=== PATIENT | male | born 1960 | race Caucasian/White ===

== ENCOUNTER 2019-07-02 15:27 | Inpatient (IN) | payer OTHER, SELFPAY ==
[~2019-07-02 15:27] MED LIST: Iopamidol 370 76% 100 ML VIAL ONE
[2019-07-02 16:17] LABS: #Basophils 0.1 thou/uL (0.0-0.2); #Eosinphils 0.4 thou/uL (0.0-0.7); #Lymphocytes 2.2 thou/uL (1.20-3.40); #Monocytes 0.9 thou/uL (0.11-0.59); #Neutrophils 6.1 thou/uL (1.40-6.50); %Basophils 0.6 % (0.0-1.0); %Lymphocytes 22.4 % (21.0-51.0); %Monocytes 9.1 % (0.0-10.0); %Neutrophils 63.8 % (42.0-75.0); Hemoglobin 13.4 g/dL (14.0-18.0); Mean Corpuscular HGB CONC 34.8 g/dL (32.0-36.0); Mean Corpuscular Hemoglobin 32.8 pg (27.0-31.0); Mean Corpuscular Volume 94.1 fL (78.0-98.0); Mean Platelet Volume 8.6 fL (7.4-10.4); Platelet Count 184 thou/uL (130-400); RBC Distribution Width 11.7 % (11.5-14.5); Red Blood Cell (RBC) Count 4.09 mill/uL (4.70-6.10); White Blood Cell (WBC) Count 9.6 thou/uL (4.8-10.8)
--- NOTE | 2019-07-02 16:20 | CT ---
CT BRAIN NONCONTRAST: DATE: 07/02/2019 HISTORY: 59-year-old male with bilateral upper extremity weakness. "Altered mental status" Brief episode of dysarthria. Dr. Mooney verbally gave this stroke alert protocol report by telephone to Dr. Mares of the emergency de partment at 4:17 PM 07/02/2019 FINDINGS: There is no evidence of acute intra-axial or extra-axial hemorrhage. There is no midline shift or any other mass effect. There is no extra-axial fluid collection. There is no evidence of obstructive hydrocephalus. Calvarium is intact. IMPRESSION: No acute intracranial findings.
[2019-07-02 16:24] LABS: Prothrombin Time 13.2 SEC (12.0-14.7)
[2019-07-02 16:26] LABS: D-Dimer Test 0.57 *mcg/mL (0.27-0.43)
[2019-07-02 16:32] LABS: Acetaminophen Less than 6.0 mcg/mL (10.0-30.0); Alcohol Less than 10 mg/dL (Less than 10); Salicylate Less than 8.0 mg/dL (15.0-30.0)
[2019-07-02 16:33] LABS: ALT (SGPT) 16 U/L (8-55); AST (SGOT) 14 U/L (5-34); Albumin 4.3 g/dL (3.5-5.0); Alkaline Phosphatase 71 U/L (40-110); Anion Gap 14 mmol/L (10-20); BUN (Urea Nitrogen) 18 mg/dL (8.4-25.7); Bilirubin, Total 0.9 mg/dL (0.2-1.2); CK (CPK) 115 U/L (30-200); Calc. Creatinine Clearance 0 mL/min (70-130); Calcium 9.5 mg/dL (7.8-10.44); Carbon Dioxide 27 mmol/L (22-29); Chloride 102 mmol/L (98-107); Estimated GFR-MDRD 75; Globulin 2.9 g/dL (2.4-3.5); Glucose 158 mg/dL (70-105); Lipase 104 U/L (8-78); Protein, Total 7.2 g/dL (6.0-8.3); Sodium 139 mmol/L (136-145)
--- NOTE | 2019-07-02 16:34 | RAD ---
Chest one view HISTORY: Chest pain. FINDINGS: Cardiac silhouette is magnified by projection. Pulmonary vasculature is unremarkable. Media stinum is midline. No lobar consolidation or evidence of pneumothorax. quality assurance monitor chassis leads overlie the chest. IMPRESSION: Normal exam.
--- NOTE | 2019-07-02 17:37 | CT ---
EXAM: CT angiogram thorax and abdomen with IV contrast and 3-D reconstructions PROVIDED CLINICAL HISTORY: Bilateral hand and arm weakness. Slurred speech and neck pain history of high blood pressure COMPARISON: None FINDINGS: Axial CT images are obtained from the level of the thyroid gland to the distal intra-abdominal aorta. Iliac arteries were not imaged on this exam. Scattered vascular calcifications are seen in the thoracic and abdominal aorta. No aneurysm or aortic dissection is seen involving the thoracic or abdominal aorta. A normal arrangement of the great vessels at the aortic arch are noted which are patent. Atherosclerotic plaque is seen within the prox imal left common carotid artery, but there is motion in this region which does limit adequate evaluation. There is evidence of an arcuate ligament with ectasia of the celiac artery axis distal to the level o f the arcuate ligament. The superior mesenteric and inferior mesenteric arteries are patent with questionable trace amount of eccentric atherosclerotic plaque in the proximal JEREMY, but there is motio n this region which may account for this finding. Single patent bilateral renal arteries are visualized. A 6 mm noncalcified pulmonary nodule is seen in the right middle lobe. No additional pulmonary nodule , mass, or pleural effusion is seen. This exam is obtained in expiratory phase imaging which does result in ground glass densities likely attributable to volume loss. The heart is mildly enlarged. Vascular calcifications are seen in the coronary arteries. Mediastinal structures otherwise have a normal CT appearance. The liver, spleen, pancreas, bilateral adrenal glands, and kidneys demonstrate a normal CT appearance for arterial phase of imaging. A retrocecal appendix is visualized and normal in caliber. A few scattered colonic diverticula are se en in the visualized colon. There is no lymphadenopathy or free fluid. Incomplete visualization of a ventral abdominal wall hernia is seen in the midline. Degenerative changes are seen in the spine with hemangioma in the T11 vertebral body. IMPRESSION: 1. Noncalcified pulmonary nodule right middle lobe measuring approximately 6 mm. Follow-up CT thorax in 6-12 months is recommended. 2. There is no evidence of an aortic dissection or aneurysm involving the thoracic or abdominal aorta . 3. Mild cardiomegaly. 4. No acute findings in the chest or visualized abdomen. The entire abdomen was not imaged on this ex am. Iliac arteries were not imaged.
[2019-07-02 17:48] LABS: Bilirubin Negative (Negative); Blood, Urine Negative (Negative); Clarity Clear (Clear); Glucose, Urine (Dipstick) 100 mg/dL (Negative); Leukocyte Negative Leu/uL (Negative); Nitrite Negative (Negative); Protein, Urine (Dipstick) Negative (Neg-Trace); Urobilinogen Normal mg/dL (Less than 2)
[2019-07-02 18:00] LABS: Amphetamine Not Detected (NotDetected); Barbiturates Screen Not Detected (NotDetected); Benzodiazepine Screen Not Detected (NotDetected); Cocaine Metabolite Screen Not Detected (NotDetected); Medtox Control Line Valid? VALID (VALID); Medtox Reader # READER 4; Methadone Not Detected (NotDetected); Methamphetamine Not Detected (NotDetected); Opiate Screen Not Detected (NotDetected); Oxycodone Screen Not Detected (NotDetected); Phencyclidine (PCP) Not Detected (NotDetected); THC/Cannabinoid Screen Not Detected (NotDetected); Tricyclic Screen Not Detected (NotDetected)
[2019-07-02] MEDS ORDERED: Ondansetron PF 4 MG/2 ML Vial IVP PRN (19:02)
[2019-07-02] MEDS ORDERED: Ondansetron ODT 4 MG TAB SL PRN (19:02)
[2019-07-02 20:05] VITALS: BMI 34.9
[2019-07-02] MEDS ORDERED: Senokot S 8.6-50 MG TAB PO PRN (21:14)
[2019-07-02] MEDS ORDERED: Acetaminophen 325 MG TAB PO PRN (21:14)
[2019-07-02] MEDS ORDERED: Dextrose 5% in Water 1,000 ML IV PRN (21:18)
[2019-07-02] MEDS ORDERED: Dextrose 50% Abboject 50 ML SYRINGE SLOW IVP PRN (21:18)
--- NOTE | 2019-07-02 21:44 | PDOC.HHP ---
Hospitalist HPI - History of Present Illness Weakness of both hands History of Present Illness: 59 yo male with DM-2, HTN, CVA history presented to ER due to sudden onset of weakness of both arms. He states that he was well when he woke up this morning. At 9 AM, he had sudden onset weakness of both hands where he was unable to make a fist or hold any objects. The weakness gradually got worse until 2 PM. So, he presented to the ER. He denies a headache, vision changes, N/V/C, abdominal pain , fever, chills. No speech changes, confusion, difficulty swallowing. No weakness in his legs. No neck pain, injury recently, falls. No pain in his arms. No incontinence of bowel or bladder. No CP,SOB, Cough, wheezing, burning or pain with urination. ED Course: In ER, CT head without any abnormalities. CTA chest without any dissection. Hospitalist ROS - Review of Systems All other systems reviewed; all pertinent +/- noted in HPI/Subj Hospitalist History - Past Medical History Source: patient, family Cardiac: reports: HTN, Hyperlipidemia BATTERY ASSEMBLER: reports: CVA, TIA Endocrine: reports: Diabetes - Past Surgical History Past Surgical History: reports: no pertinent history (Reviewed) - Family History Family History: reports: no pertinent history (Reviewed) - Social History Smoking Status: Current some day smoker Tobacco Type: snuff Alcohol: reports: None (History of heavy use in the past) Drugs: reports: none Living Situation: Alone Activity level: independent ambulation - Exam General Appearance: NAD, awake alert Eye: PERRL, anicteric sclera ENT: normocephalic atraumatic, no oropharyngeal lesions, moist mucosa Neck: supple, symmetric, no JVD, no thyromegaly, no lymphadenopathy Heart: RRR, no murmur, no gallops, no rubs, normal peripheral pulses Respiratory: CTAB, no wheezes, no rales, no ronchi, normal chest expansion, no tachypnea Gastrointestinal: soft, non-tender, normal bowel sounds, no palpable masses, no hepatomegaly, no splenomegaly Gastrointestinal - other findings: obese Extremities: no cyanosis, no clubbing, no edema Skin: normal turgor, no lesions Skin - other findings: warm and dry Neurological: cranial nerve grossly intact, normal sensation to touch Musculoskeletal: no muscle wasting Musculoskeletal - other findings: intact strength at shoulder and elbow flxn; weak extn elb & hands;can't fist Psychiatric: normal affect, normal behavior, A&O x 3 Hospitalist Results - Labs Result Diagrams: 07/02/19 16:05 07/02/19 16:05 Lab results: WBC 9.6 thou/uL (4.8-10.8) 07/02/19 16:05 Hgb 13.4 g/dL (14.0-18.0) L 07/02/19 16:05 Hct 38.5 % (42.0-52.0) L 07/02/19 16:05 MCV 94.1 fL (78.0-98.0) 07/02/19 16:05 Plt Count 184 thou/uL (130-400) 07/02/19 16:05 Neutrophils % 63.8 % (42.0-75.0) 07/02/19 16:05 ESR Westergren 8 mm/hr (Less than 20) 07/02/19 16:05 Sodium 139 mmol/L (136-145) 07/02/19 16:05 Potassium 4.0 mmol/L (3.5-5.1) 07/02/19 16:05 Chloride 102 mmol/L (98-107) 07/02/19 16:05 Carbon Dioxide 27 mmol/L (22-29) 07/02/19 16:05 BUN 18 mg/dL (8.4-25.7) 07/02/19 16:05 Creatinine 1.02 mg/dL (0.7-1.3) 07/02/19 16:05 Glucose 158 mg/dL (70-105) H 07/02/19 16:05 Calcium 9.5 mg/dL (7.8-10.44) 07/02/19 16:05 Total Bilirubin 0.9 mg/dL (0.2-1.2) 07/02/19 16:05 AST 14 U/L (5-34) 07/02/19 16:05 ALT 16 U/L (8-55) 07/02/19 16:05 Alkaline Phosphatase 71 U/L (40-110) 07/02/19 16:05 Ammonia 17 umol/L (18-72) L 07/02/19 16:35 Creatine Kinase 115 U/L (30-200) 07/02/19 16:05 Troponin I 0.013 ng/mL (< 0.028) 07/02/19 16:05 C-Reactive Protein Less than 0.50 mg/dL (= or < 0.5) 07/02/19 16:05 B-Natriuretic Peptide 49.2 pg/mL (0-100) 07/02/19 16:05 Serum Total Protein 7.2 g/dL (6.0-8.3) 07/02/19 16:05 Albumin 4.3 g/dL (3.5-5.0) 07/02/19 16:05 Lipase 104 U/L (8-78) H 07/02/19 16:05 Urine Ketones 10 mg/dL (Negative) A 07/02/19 17:27 Urine Blood Negative (Negative) 07/02/19 17:27 Urine Nitrite Negative (Negative) 07/02/19 17:27 Ur Leukocyte Esterase Negative Theo/uL (Negative) 07/02/19 17:27 - EKG Interpretation EKG: Sinus rhythm; No ST-T changes concerning for ischemia - Radiology Interpretation CT scan - head Status: image reviewed by me (No acute hemorrhage) Hospitalist H&P A/P - Problem (1) Weakness of both upper extremities Code(s): R29.898 - OTH SYMPTOMS AND SIGNS INVOLVING THE MUSCULOSKELETAL SYSTEM Status: Acute Assessment and Plan: Place under observation to Stroke unit CT head without any abnormalities Will obtain MRI brain and MRI C-spine Neuro consult CTA head & neck; ECHO ASA & statin therapy PT/OT eval (2) Diabetes mellitus type 2 in obese Code(s): E11.9 - TYPE 2 DIABETES MELLITUS WITHOUT COMPLICATIONS; E66.9 - OBESITY , UNSPECIFIED Status: Chronic Assessment and Plan: Not on home insulin therapy Hold metformin as patient received IV dye Diabetic diet and SSI Monitor sugars and adjust regimen accordingly (3) Dyslipidemia Code(s): E78.5 - HYPERLIPIDEMIA, UNSPECIFIED Status: Chronic Assessment and Plan: Statin therapy (4) HTN (hypertension) Code(s): I10 - ESSENTIAL (PRIMARY) HYPERTENSION Status: Chronic Qualifiers: Hypertension type: essential hypertension Qualified Code(s): I10 - Essential (primary) hypertension Assessment and Plan: Blood pressure with SBP in the 140s Allow permissive HTN in case patient has acute CVA until MRI performed (5) Obesity (BMI 30-39.9) Code(s): E66.9 - OBESITY, UNSPECIFIED Status: Chronic - Plan Plan: CODE STATUS - DNR; May Intubate Daughter is Medical POA
[2019-07-02] MEDS ORDERED: Atorvastatin Calcium 40 MG TAB PO SCH (21:45)
[2019-07-03] MEDS: Sodium Chloride 0.9% 1,000 ML IV SCH ×2 (00:50→14:07)
[2019-07-03 05:01] LABS: #Eosinphils 0.4 thou/uL (0.0-0.7); #Lymphocytes 2.5 thou/uL (1.20-3.40); #Monocytes 0.8 thou/uL (0.11-0.59); #Neutrophils 4.1 thou/uL (1.40-6.50); %Basophils 0.5 % (0.0-1.0); %Eosinophils 4.5 % (0.0-10.0); %Lymphocytes 32.4 % (21.0-51.0); %Neutrophils 52.6 % (42.0-75.0); Hemoglobin 12.4 g/dL (14.0-18.0); Mean Corpuscular Hemoglobin 32.4 pg (27.0-31.0); Mean Corpuscular Volume 95.3 fL (78.0-98.0); Platelet Count 159 thou/uL (130-400); RBC Distribution Width 11.9 % (11.5-14.5); Red Blood Cell (RBC) Count 3.84 mill/uL (4.70-6.10); White Blood Cell (WBC) Count 7.8 thou/uL (4.8-10.8)
[2019-07-03 05:27] LABS: Troponin I Less than 0.010 ng/mL (< 0.028)
[2019-07-03 05:33] LABS: ALT (SGPT) 13 U/L (8-55); AST (SGOT) 18 U/L (5-34); Albumin 3.8 g/dL (3.5-5.0); Alkaline Phosphatase 61 U/L (40-110); Anion Gap 12 mmol/L (10-20); BUN (Urea Nitrogen) 15 mg/dL (8.4-25.7); Bilirubin, Total 0.8 mg/dL (0.2-1.2); Calc. Creatinine Clearance 155 mL/min (70-130); Carbon Dioxide 23 mmol/L (22-29); Cardiac Risk 3.9 (Less than 4.5); Chloride 106 mmol/L (98-107); Cholesterol 121 mg/dl (< 200 Desired); Estimated GFR-MDRD Greater than 90; Glucose 171 mg/dL (70-105); HDL Cholesterol 31 mg/dL (>60 Neg Risk); LDL Cholesterol, Calculated 37 mg/dL; Potassium 4.3 mmol/L (3.5-5.1); Protein, Total 6.8 g/dL (6.0-8.3); Sodium 137 mmol/L (136-145); Triglycerides 264 mg/dL (Less than 150)
[2019-07-03] MEDS ORDERED: Aspirin 81 mg Enteric Coated Tablet PO SCH (09:00)
[2019-07-03] MEDS: Heparin 5,000 UNITS/ML VIAL SC SCH ×3 (09:17→20:48)
[2019-07-03] MEDS ORDERED: Ondansetron ODT 8 MG TAB SL PRN (10:01)
--- NOTE | 2019-07-03 11:36 | MRI ---
MRI of thebrain: 07/03/2019 COMPARISON:05/25/2016 HISTORY:Bilateral hand numbness and tingling TECHNIQUE: Multiplanar multisequence MR imaging of thebrain without contrast Findings:The diffusion weighted imaging demonstrates no evidence for acute infarction. The axial gradient echo imaging demonstrates a focus of blooming artifact within the middle cerebella r peduncle on the left consistent with an area of remote hemorrhage, stable when compared to the 2017 examination. There are multiple scattered subcentimeter foci of increased T2 and FLAIR signal within the periventr icular, deep, and subcortical white matter, grossly unchanged when compared to the 2017 examination. Statistically, this likely represents small vessel disease. Other etiologies, including demyelinating disease, are possibilities. Arterial flow voids at the axial level of the skull base appear grossly unremarkable on the T2-weight ed imaging. There is mild mucosal thickening involving the alveolar recess of the maxillary sinus on the left. Re gional bone marrow signal intensity appears grossly unremarkable. IMPRESSION:Nonspecific white matter disease, unchanged when compared to prior exam. No evidence for a cute infarction.
--- NOTE | 2019-07-03 12:32 | MRI ---
MR CERVICAL SPINE WITHOUT CONTRAST INDICATION: Bilateral arm weakness TECHNIQUE: Multiplanar multisequence MR images were obtained of the cervical spine without contrast. COMPARISON: None FINDINGS: Posterior fossa: Within normal limits. Bone marrow signal intensity: Normal Spinal alignment: There is straightening of the normal cervical lordosis. There is very slight retrol isthesis of C4 on C5 and C5 on C6 which is likely degenerative. Craniocervical junction: Normal appearing. Prevertebral and perivertebral soft tissues: Visualized soft tissues appear within normal limits. Vertebral levels: C2-C3: No appreciable central canal or neuroforaminal narrowing. C3-4: There is a vertebral hypertrophy and facet joint degenerative change inducing mild right neural foraminal narrowing. There is mild broad-based disc bulge inducing mild central canal narrowing with mild ventral effacement of spinal cord without cord signal abnormality. C4-5: There is a broad-based disc osteophyte complex with uncovertebral hypertrophy and facet joint degenerative change inducing severe central canal narrowing with moderate ventral cord flattening. There is T2 signal seen within the spinal cord just slightly cephalad to this region of narrowing are suspicious for spinal cord edema or myelomalacia. There is severe bilateral neural foraminal narrowing due to uncovertebral hypertrophy and facet joint degenerative change. C5-C6: There is a broad-based disc osteophyte complex and facet joint degenerative change inducing mi ld right and moderate left neural foraminal narrowing. There is moderate central canal narrowing with mild ventral effacement spinal cord. There is cord signal abnormality seen within the central as pect spinal cord at this level suspicious for myelomalacia versus edema C6-C7:, There is a broad-based disc bulge with facet joint degenerative change in October hypertrophy inducing mild bilateral neural foraminal narrowing and mild central canal narrowing. C7-T1: There is a mild broad-based bulge. There is no appreciable central canal or neural foraminal n arrowing IMPRESSION: 1. Prominent central canal narrowing at C4-5 and C5-6 with cord flattening. There is edema versus mye lomalacia within the spinal cord just cephalad to C4-5 and within the spinal cord at C5-6. 2. Severe bilateral neural foraminal narrowing at C4-5. 3. Moderate left and mild right neural foraminal narrowing at C5-6. 4. Mild central canal narrowing with mild right neural foraminal narrowing at C3-4. 5. Mild central canal narrowing with mild bilateral neural foraminal narrowing at C6-7.
[2019-07-03] MEDS: HumaLOG 300 UNITS/3 ML VIAL SC PRN ×3 (12:43→23:16)
[2019-07-03] MEDS: Dexamethasone 4 MG TAB PO SCH ×2 (12:44→20:48)
--- NOTE | 2019-07-03 14:36 | PRG ---
DATE OF SERVICE: 07/03/2019 SUBJECTIVE: The patient is seen and examined at the bedside. There is not much change how he feels today comparing to yesterday. His walking is good, but his upper extremities showed some weakness which started yesterday. OBJECTIVE: VITAL SIGNS: Blood pressure is 163/75, pulse is 61, respirations 16, temperature is 98.3, maximal temperature is 98.8, pulse oximetry is 98% on room air. HEENT: Head is atraumatic and normocephalic. Eyes are PERRLA. Sclerae are nonicteric. Oral mucosa is moist. NECK: Supple. LUNGS: Clear. HEART: S1, S2 normal. No S3. No S4. ABDOMEN: Soft, nontender, obese. Bowel sounds are present, no organomegaly. EXTREMITIES: No clubbing, cyanosis, or edema. NEUROLOGIC: He follows my commands. He moves his lower extremities. There is motor deficit in extension of bilateral elbows. LABORATORY DATA: White count of 7.8, hemoglobin 12.4, hematocrit 36.6, platelet count is 159,000. Normal electrolytes. Normal kidney function. Glucose is ranging from 155 to 219. The rest of chemistry is within normal limits. Triglycerides 264, cholesterol 121, LDL is 37, HDL 31. Brain MRI showed nonspecific white matter disease, unchanged when compared to prior exam. No evidence for acute infarction within the middle cerebellar peduncle of the left. There is an area of remote hemorrhage which is stable when compared to examination from 2017. Echocardiogram, LV EF estimated at 55%. Mildly dilated left atrium. Impaired relaxation compatible with diastolic dysfunction. Cervical spine MRI showed: 1. Prominent central canal narrowing at C4 and C5 and C5 and C6 with cord flattening. 2. Severe bilateral neural foraminal narrowing at C4 and C5 and moderate left and mild right neural foraminal narrowing at C5 and C6 with mild central canal narrowing at C3-4 and mild central canal narrowing at C6 and C7. IMPRESSION: 1. Prominent central canal stenosis with some affect on the spine at the level of C4-C5 and C5-C6. 2. Diabetes mellitus type 2. 3. Dyslipidemia. 4. Hypertension. 5. Obesity. PLAN: We will reconcile his home medications when the list is available. We are working on it. We will stop his IV fluids at this point. He was started on dexamethasone orally by Dr. Ortega. We are waiting for the official report from neurologist and we are waiting for neurosurgical consultation at this point. Job ID: [id number]
--- NOTE | 2019-07-03 16:37 | CT ---
CT angiogram head CT angiogram neck: 07/03/2019 COMPARISON: No prior CT angiograms, cervical spine and brain MRI performed 07/03/2019, head CT performe d 07/02/2019 TECHNIQUE: Axial CT imaging at 5 mm intervals from vertex through skull base without contrast. Subseq uently, axial CT imaging at 1.25 mm intervals from the lung apices through the vertex with IV contrast using CT angiogram protocol. Coronal and sagittal 3-D reformatted imaging obtained. FINDINGS: Noncontrast enhanced head CT demonstrates no intracranial hemorrhage, midline shift, mass e ffect, or ventricular enlargement. There is mild mucosal thickening involving the alveolar recess of the left maxillary sinus. Imaged paranasal sinuses and mastoid air cells are otherwise unremarkabl e. No displaced calvarial fracture. CT angiogram imaging demonstrates no hemodynamically significant stenosis involving the origin of the innominate artery, right subclavian artery, right vertebral artery, right common carotid artery, left subclavian artery, left common carotid artery, or left vertebral artery. Bilateral vertebral art eries are patent with no hemodynamically significant stenosis noted. The right vertebral artery is dominant. On the basis of NASCET criteria, there is no hemodynamically significant stenosis involving the inter nal carotid artery or common carotid artery on either side. There is mild atherosclerotic plaque at the origin of the right internal carotid artery. The visualized lung apices are unremarkable. The retroantral fat, parapharyngeal fat, parotid glands, and submandibular glands appear grossly unre markable. Region of the thyroid gland, glottis, cricoid cartilage, thyroid cartilage, hyoid bone, epiglottis, preepiglottic fat, and pontine tonsils unremarkable. No lymphadenopathy is apparent withi n the neck. The basilar artery is unremarkable. A origin of the left ASSEMBLER FISHING FLOATS is suspected. No high-grade stenosis, vascular occlusion, or saccular aneurysm is evident within the posterior circ ulation. There is mild atherosclerotic calcification involving the cavernous carotid artery bilaterally. The ICA bifurcation, the M1 segment, the MCA bifurcation, the A1 segment, the distal PIA branches, an d the distal MCA branches appear grossly unremarkable. No saccular aneurysm, high-grade stenosis, or vascular occlusion is seen involving the anterior circulation. There is disc space narrowing with degenerative endplate change and disc osteophyte complex formation at C4-5 and C5-6 with associated central canal stenosis, that are assessed on the cervical spine MRI performed 07/03/2019. IMPRESSION: No intracranial hemorrhage noted on the noncontrast enhanced head CT. CT angiogram of the neck demonstrates no hemodynamically significant stenosis involving the arterial structures of the neck. No intracranial arterial thrombosis or high-grade stenosis.
--- NOTE | 2019-07-03 20:13 | CON ---
DATE OF CONSULTATION: 07/03/2019 REASON FOR CONSULTATION: Cervical stenosis. CHIEF COMPLAINT: "I'm unable to feed myself because I can't hold anything like a fork." HISTORY OF PRESENT ILLNESS: Mr. Vela is a 59-year-old gentleman who comes into the ED on 07/01 due to bilateral upper extremity weakness. States on Sunday he was in a massage chair, everything was working normally and yesterday around 9:30 a.m. he developed bilateral upper extremity weakness, unable to grasp anything. He stated that his hands which just flop. Stated the pain started in the right elbow, shooting across to the left elbow. Denies neck pain or arm pain. States he is unable to squeeze his hands. He is unable to reach for anything without his hands flopping. Stated that he received a steroid at 1 p.m. and now he is able to move his limbs against gravity. He said he still had to have his daughter feed him his dinner at 4:30 this afternoon. HOSPITALIZATION: 2-3 years ago, stroke, was in [facility] for 7 days. Denies any surgeries. ALLERGIES: TO PENICILLIN. SMOKING SNUFF FOR 48 YEARS. DRUGS: Used speed and THC 40 years ago. Alcohol averages 6 beers a week, 1 case a month. FAMILY HISTORY: Father from cancer. Mother , had COPD. Has two daughters and one son. PAST MEDICAL HISTORY: Hypertension, hyperlipidemia, diabetes. MEDICATIONS: 1. Amlodipine 10 mg. 2. Aspirin 325 mg. 3. Atorvastatin 20 mg. 4. Carvedilol 25 mg. 5. Lisinopril/hydrochlorothiazide 20/25 mg. 6. Metformin 1000 mg. 7. Spironolactone 50 mg. REVIEW OF SYSTEMS: CONSTITUTION: Denies fever, chills. EAR, NOSE, AND THROAT: Denies change in vision or hearing. CARDIAC: Denies chest pain, shortness of breath, diaphoresis. PULMONARY: Denies shortness of breath, cough, hemoptysis. GI: Denies abdominal pain, nausea, vomiting, diarrhea, change in stool formation or consistency. GI: Denies trouble with urination, frequency of urination, bloody urine. SKIN: Denies rash, bruising, bleeding, skin masses. MUSCULOSKELETAL: As per History of Present Illness. NEUROLOGICAL: As per History of Present Illness. PSYCHOLOGICAL: Denies anxiety, depression, crying. PHYSICAL EXAMINATION: HEENT: Pupils are equal. Extraocular movements are intact. NECK: Soft, supple. No masses are noted. Range of motion is intact and nonpainful. NEUROLOGICAL: Awake, alert, and oriented x3. Memory, attention, fund of knowledge normal. Cranial nerves grossly intact. EXTREMITIES: Upper extremity, 5/5 strength in the biceps, 3/5 strength in the triceps, flexion, finger extensions, and intrinsics. No hand senior technologist strength. Gait and station; [id number] normal, normal gait. DTRs minimal response bilateral triceps and biceps. IMAGING: MRI of the C-spine showed severe bilateral neural foraminal narrowing at C4-C5. There is a central canal narrowing at C4-C5 and C5-C6 with cord flattening with edema. PLAN: We offered Mr. Vela option of continuing his steroids 3 times a day until he returns to the clinic with a neck brace or 2-3 level ACDF. He discussed it with his two daughters and they decided to go ahead with the 2-3 level ACDF at 7 a.m. on July 03. CONSENT: We have discussed the indications, risks, benefits, alternatives, and expected results from surgery. The risks discussed included, but were not limited to, bleeding, infection, CSF leak, nerve damage, weakness, swallowing trouble, feeding tube placement, tracheal injury, esophageal injury, vocal cord injury, spinal cord injury, incontinence, paralysis, ventilator dependency, wheelchair dependency, stroke, loss of vision, carotid artery injury, jugular vein injury, hardware mesh placement, cardiopulmonary complications of anesthesia, or . Long-term complications discussed included but were not limited to hardware failure and aggravation of surrounding disk. The patient states they understand the risks and are willing to proceed. Job ID: [id number]
[2019-07-03] MEDS: Atorvastatin Calcium 20 MG TAB PO SCH (20:48)
[2019-07-03] MEDS ORDERED: Atorvastatin Calcium 40 MG TAB PO SCH (21:00)
--- NOTE | 2019-07-03 22:34 | CON ---
DATE OF CONSULTATION: 07/03/2019 CONSULTING PHYSICIAN: Hospitalist Services. IMPRESSION: 1. Cervical cord compression and bilateral upper extremity weakness. 2. Diabetes. 3. Minimal asymptomatic small-vessel disease on MRI of the brain. PLAN: 1. Continue aspirin and statin. 2. Neurosurgical consultation. 3. Continue Decadron 4 mg q.8 hours. HISTORY OF PRESENT ILLNESS: Mr. Vela is a 59-year-old man with history of diabetes. He presented with complaints of weakness and numbness in both upper extremities. He has not noticed any problems walking. He had symptoms come on fairly quickly. He was admitted for further evaluation. Initial CT scan of the brain was negative. MRI of the cervical spine showed a cord compression with edema in the mid cervical region. His lab work was otherwise negative. He is not complaining of any pain or trouble walking. PAST MEDICAL HISTORY: Diabetes. ALLERGIES: NONE REPORTED. SOCIAL HISTORY: No tobacco use. FAMILY HISTORY: Noncontributory. REVIEW OF SYSTEMS: Ten-system review of systems is otherwise negative. PHYSICAL EXAMINATION: GENERAL: He is an overweight middle-aged man, lying in bed, in no acute distress. VITAL SIGNS: Stable. He is afebrile. HEENT: Pupils are equal and reactive. Conjunctivae clear. Oropharynx clear. NECK: No lymphadenopathy. EXTREMITIES: No cyanosis or edema. NEUROLOGIC: He is alert and cooperative. His speech is fluent and clear. Cranial nerves 2 through 12 are intact. Motor exam showed some partial antigravity strength in both upper extremities with approximately 3/5 strength in deltoid, triceps, finger flexors, and almost no finger extension strength and reasonably good biceps strength. Sensation was intact to light touch. Plantar responses were downgoing. He has two beats of clonus at the ankles. Gait was not tested. IMAGING: Reviewed. SUMMARY: A middle-aged man with cord compression. He has been started on Decadron. Neurosurgical consultation has been entered. He has some asymptomatic small-vessel disease related to his diabetes. I agree with continuing aspirin and a statin. Job ID: [id number]
[2019-07-03] MEDS: CEFAZOLIN 2 GM in Premix Bag 1 BAG IVPB SCH (23:14)
--- NOTE | 2019-07-03 23:42 | RAD ---
EXAM: XR Cervical Spine 4 View Min PROVIDED CLINICAL HISTORY: Presurgical planning. Bilateral arm weakness COMPARISON: None FINDINGS: C1-C7 is seen on the lateral views. T1 vertebral body is not visualized. Degenerative changes are pre sent at the C4-5 and C5-6 levels and to a lesser extent at the C6-7 level with loss of intervertebral disc height and osteophyte formation. The vertebral body heights are within normal rojas its. No fracture or subluxation is seen on provided images. No abnormal translational motion is seen between the flexion and extension views. Prevertebral soft tissues are within normal limits. Vas cular calcifications are seen in the right carotid arteries. IMPRESSION: 1. Nonvisualization the cervicothoracic junction. 2. Degenerative changes in the cervical spine.
[2019-07-04] MEDS: Dexamethasone 4 MG TAB PO SCH ×3 (05:07→20:08)
[2019-07-04] MEDS: CEFAZOLIN 2 GM in Premix Bag 1 BAG IVPB SCH ×3 (05:07→23:31)
[2019-07-04] MEDS: Carvedilol 25 MG TAB PO SCH ×2 (05:07→16:17)
[2019-07-04] MEDS ORDERED: Thrombin 5000 UNITS/5 ML VIAL ONE (06:09)
[2019-07-04] MEDS ORDERED: Midazolam HCl 2 mg/2 ml Vial ONE (06:25)
[2019-07-04] MEDS ORDERED: Fentanyl 250 MCG/5 ML VIAL ONE (06:25)
[2019-07-04] MEDS ORDERED: Sodium Chloride 0.9% 100 ML ONE (06:50)
[2019-07-04] MEDS ORDERED: CEFAZOLIN 1 GM VIAL ONE (06:50)
[2019-07-04] MEDS ORDERED: Phenylephrine 10 MG/ML VIAL ONE (08:15)
[2019-07-04] MEDS ORDERED: Aspirin 325 MG TAB PO SCH (09:00)
[2019-07-04] MEDS ORDERED: Vecuronium 10 MG VIAL ONE (09:56)
[2019-07-04] MEDS ORDERED: PROPOFOL 200 MG/20 ML VIAL ONE (09:56)
[2019-07-04] MEDS ORDERED: EPHEDRINE 25 MG/5 ML SYRINGE ONE (09:56)
[2019-07-04] MEDS ORDERED: PHENYLEPHRINE-NS 100 MCG/ML 10 ML SYRINGE ONE (09:56)
[2019-07-04] MEDS ORDERED: Dexamethasone 20 MG/5 ML VIAL ONE (09:56)
[2019-07-04] MEDS ORDERED: Ondansetron PF 4 MG/2 ML Vial ONE (09:56)
[2019-07-04] MEDS ORDERED: Rocuronium Bromide 10 MG/ML (10ML VIAL) ONE (09:56)
[2019-07-04] MEDS ORDERED: Glycopyrrolate 0.2 MG/ML 5 ML SYRINGE ONE (09:56)
[2019-07-04] MEDS ORDERED: Lidocaine 1% PF 5 ML VIAL ONE (09:56)
[2019-07-04] MEDS ORDERED: Promethazine HCl 25 MG/ML VIAL SLOW IVP PRN (10:52)
[2019-07-04] MEDS ORDERED: Ondansetron HCl/PF 4 MG/2 ML Vial IVP PRN (10:52)
[2019-07-04] MEDS ORDERED: Promethazine HCl 25 MG/ML VIAL IM PRN (10:52)
[2019-07-04] MEDS ORDERED: Morphine Sulfate 2 MG/ML SYRINGE SLOW IVP PRN (10:52)
[2019-07-04] MEDS ORDERED: PACU-Morphine 4MG/ML VIAL SLOW IVP PRN (10:52)
[2019-07-04] MEDS ORDERED: HYDROmorphone 2 MG/ML VIAL SLOW IVP PRN (10:52)
[2019-07-04] MEDS: Spironolactone 25 MG TAB PO SCH ×2 (10:53→16:16)
[2019-07-04] MEDS: Insulin Glargine 10 UNITS in Pre-Filled Syringe 1 EACH SC SCH (10:53)
[2019-07-04] MEDS: Lisinopril/Hydrochlorothiazide 20/25 mg Tablet PO SCH (10:53)
[2019-07-04] MEDS: Amlodipine 5 MG TAB PO SCH (10:53)
--- NOTE | 2019-07-04 11:13 | PRG ---
DATE OF SERVICE: 07/04/2019 TIME: 06:15 a.m. I met Luis Vela in the preoperative area this morning. I agree with the notes and documentation of Mika Gallego PA-C, dated 07/03/2019. Briefly, Luis Vela tells me that he get out of the shower on Sunday of this week, dried the back of his head with a towel and had immediate onset of burning pain in both arms and then progressing to severe weakness and disuse of both of the upper extremities. He was brought to the Emergency Department, where the evaluation for stroke was done and there was no abnormalities in the cervical or intracranial vasculature, and the MRI scan was normal. An MRI scan was done of the cervical spine showing disk disease at C4-C5 and C5-C6 with cord compression and T2 signal change in the cord. Neurosurgery was consulted. At the time we had seen him, he had received Decadron and was already improving. I am seeing him in the morning before surgery and he has deltoid and biceps strength, but triceps, finger extensors, and interossei were all significantly weak at 4- to 3+/5. There is nondermatomal sensory loss in both upper extremities. The reflexes in the legs were brisk actually. I reviewed the MRI scan due to the cord compression and neurological dysfunction and recommended surgery. We planned this for this morning. INFORMED CONSENT: I discussed indications, risks, benefits, alternatives, and expected outcomes from surgery. The risks we discussed included, but were not limited to, bleeding, infection, CSF leak, damage to the trachea, damage to the esophagus, damage to the vocal cords, permanent dysphagia, carotid artery injury , jugular vein injury, spinal cord injury, paralysis, ventilator dependence, incontinence, cardiopulmonary complications of anesthesia and . He understands all the risks and wants to proceed. We will take him to the operating room now. Job ID: [id number] [facility]ITALPatrice
[2019-07-04] MEDS ORDERED: Zolpidem Tartrate 5 MG TAB PO PRN (11:14)
[2019-07-04] MEDS ORDERED: diphenhydrAMINE 25 MG CAP PO PRN (11:14)
[2019-07-04] MEDS ORDERED: Milk Of Magnesia 30 ML UDCUP PO PRN (11:14)
[2019-07-04] MEDS ORDERED: Promethazine 25 MG TAB PO PRN (11:14)
[2019-07-04] MEDS ORDERED: Morphine 2 MG/ML SYRINGE SLOW IVP PRN (11:14)
[2019-07-04] MEDS ORDERED: tiZANidine HCl 4 MG TAB PO PRN (11:14)
[2019-07-04] MEDS ORDERED: Mag-Al 1200 mg/1200 mg/30 ML UDCUP PO PRN (11:14)
[2019-07-04] MEDS ORDERED: Ondansetron PF 4 MG/2 ML Vial IVP PRN (11:14)
[2019-07-04] MEDS ORDERED: Acetaminophen 325 MG TAB PO PRN (11:14)
[2019-07-04] MEDS ORDERED: traMADol HCl 50 MG TAB PO PRN (11:14)
[2019-07-04] MEDS ORDERED: Sodium Chloride 0.9% 1,000 ML IV SCH (11:15)
[2019-07-04] MEDS: Acetaminophen/Codeine 30-300mg Tablet PO PRN ×2 (14:24→20:06)
--- NOTE | 2019-07-04 14:37 | PRG ---
DATE OF SERVICE: 07/04/2019 SUBJECTIVE: The patient is seen and examined at the bedside. He just came back from his surgery. He complains about neck pain, it is rated approximately 5 or 6. OBJECTIVE: VITAL SIGNS: Blood pressure is 139/73, pulse is 77, respirations 16, and O2 saturation is 97% on room air. HEENT: His eyes are PERRLA. Sclerae are nonicteric. NECK: Covered with a dressing. LUNGS: Breath sounds slightly diminished at both bases. HEART: S1 and S2 normal. No S3. No S4. ABDOMEN: Obese, soft, and nontender. EXTREMITIES: No clubbing, cyanosis, or edema. NEUROLOGIC: He is alert and oriented x4. There is a significant improvement of his upper extremity weakness postsurgery. SKIN: No rash or erythema. LABORATORY DATA: Glycemia is ranging from 178 to 276. IMPRESSION: 1. Cervical cord compression and bilateral upper extremity weakness. 2. Diabetes mellitus type 2. 3. Small vessel disease on MRI of the brain. 4. Dyslipidemia. 5. Hypertension. 6. Obesity. PLAN: The patient will be staying overnight for pain management post surgery and he should be able to go home tomorrow morning. We will arrange follow up with his primary doctor and an outpatient rehab after the discharge. Job ID: [id number]
--- NOTE | 2019-07-04 16:56 | OP ---
DATE OF PROCEDURE: 07/04/2019 NET APPLICATION ARCHITECT: Mika Gallego PA-C PREOPERATIVE INDICATION: Prevent neurological deterioration. 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 POSTOPERATIVE DIAGNOSIS: Cervical intervertebral disk disease with cord compression and central cord injury at C4-C5 and C5-C6. PROCEDURES PERFORMED: Anterior cervical diskectomy, intervertebral arthrodesis, placement of intervertebral biomechanical device and anterior cervical plating C4-C5 and C5-C6, local morselized autograft, morselized allograft, and operating microscope. PREOPERATIVE MEDICATION: Ancef 2 g IV. DRAIN NUMBER: Zero. DRAIN TYPE: None. DESCRIPTION OF PROCEDURE: The patient was brought to the operating room. General endotracheal anesthesia was induced. The patient was carefully positioned supine on the operating table with his neck in normal anatomic alignment and the head supported by a gel-filled donut-shaped headrest. A lateral fluoro radiograph was used to plan our incision. The right side of the neck was sterilely prepped and draped. We opened with a 10 blade knife and controlled bleeding with bipolar cautery. We dissected sharply to the platysma and cut this muscle in line with our incision. We continued our dissection medial to the sternocleidomastoid and lateral to the trachea and esophagus, and we arrived to the prevertebral space. We placed a marker at C4-C5 and took a lateral fluoro radiograph to confirm the levels upon which we were operating. We elevated the longus colli muscles off the anterior surface of C4, C5, and C6 and placed a self-retaining lateral retractor beneath them. Distraction pins were placed at C4 and C6, and we distracted across both of the intervening interspaces. These interspaces were then incised with a 15 blade knife and we removed disk contents using curettes and rongeurs. The operative microscope was brought into the field. Under microscopic magnification and using microsurgical techniques, we removed the remainder of the intervertebral disk. We removed posterior osteophytes and posterior longitudinal ligament across the entire interspace from one nerve root all the way to the other to ensure good dural decompression throughout. This was done at C4-C5 and at C5-C6. Osteophytes were removed during our decompression. They were cleaned of soft tissue attachments, morcellized, and added to demineralized bone matrix to form a fusion substrate. We prepared the endplates for grafting with curettes and measured the height of each interspace with a bone rasp. An 8 mm PEEK graft was brought for C4-C5, and a 7 mm PEEK graft was brought in for C5-C6. These two interbody devices were loaded with demineralized bone matrix and morselized autograft and placed into the respective interspaces under radiographic guidance to the appropriate depth. We then removed our distraction pins and the operative microscope. A 34 mm anterior cervical plate was brought into the field. We drilled canal boat captain holes through the plate and affixed it to C4, C5, and C6 with 14 mm screws. We used fixed angle screws at C6 and variable angle screws at C4 and C5. We engaged the locking mechanism over each of the 6 screws. We irrigated copiously with bacitracin irrigation. AP and lateral fluoro radiographs confirmed adequate positioning of our instrumentation. We irrigated once again with bacitracin irrigation and closed the wound in anatomical layers. We applied a sterile dressing. This was a clean case, no contamination. Job ID: [id number]
[2019-07-04] MEDS: HumaLOG 300 UNITS/3 ML VIAL SC PRN ×2 (17:16→20:16)
[2019-07-04] MEDS: Atorvastatin Calcium 20 MG TAB PO SCH (20:07)
[2019-07-05] MEDS: Dexamethasone 4 MG TAB PO SCH (05:17)
[2019-07-05] MEDS: Acetaminophen/Codeine 30-300mg Tablet PO PRN (05:17)
[2019-07-05] MEDS: HumaLOG 300 UNITS/3 ML VIAL SC PRN ×2 (07:10→11:51)
[2019-07-05] MEDS: Carvedilol 25 MG TAB PO SCH (08:56)
[2019-07-05] MEDS: Spironolactone 25 MG TAB PO SCH (08:56)
[2019-07-05] MEDS: Lisinopril/Hydrochlorothiazide 20/25 mg Tablet PO SCH (08:56)
[2019-07-05] MEDS: Amlodipine 5 MG TAB PO SCH (08:56)
[2019-07-05] MEDS: Insulin Glargine 10 UNITS in Pre-Filled Syringe 1 EACH SC SCH (08:57)
--- NOTE | 2019-07-05 09:12 | PRG ---
DATE OF SERVICE: 07/05/2019 Mr. Vela was admitted for evaluation of possible CVA given history of two prior strokes for upper extremity weakness that was sudden onset. Ultimately, it was determined that he likely was suffering from cervical myelopathy and stenosis. Dr. Dee took him to the operating room yesterday. This morning, he has tremendous improvement in his bilateral upper extremity movement and strength, although distally in the hand, he obviously has some dis-coordination and weakness. He prefers to go home. We will likely discharge him home with a script for outpatient therapy to begin as early as possible. He is walking well without any assistance in the halls and he has home support. Followup will be planned in the outpatient setting with Dr. Dee and Mika Gallego. Job ID: [id number]
[2019-07-05 11:38] VITALS: BP 142/74; TEMP 98.7
--- NOTE | 2019-07-05 15:49 | EKG ---
Test Reason : Blood Pressure : / mmHG Vent. Rate : 066 BPM Atrial Rate : 066 BPM P-R Int : 162 ms QRS Dur : 106 ms QT Int : 416 ms P-R-T Axes : 022 -18 009 degrees QTc Int : 436 ms Normal sinus rhythm Minimal voltage criteria for LVH, may be normal variant Borderline ECG Confirmed by ABEL VICTOR, ARABELLA ([id number]), editor house organ LORE HO ([id number]) on 07/05/2019 3:49:21 PM Referred By: Confirmed By:ARABELLA ROMAN MD
--- NOTE | 2019-07-06 03:26 | DIS ---
DATE OF ADMISSION: 07/02/2019 DATE OF DISCHARGE: 07/05/2019 CONSULTANTS: 1. Dr. Navdeep Ortega, Neurology Service. 2. Darrel Dee MD, Neurosurgery Service. FINAL DIAGNOSES AT THE TIME OF DISCHARGE: Cervical cord compression and bilateral upper extremity weakness status post anterior cervical diskectomy, intervertebral arthrodesis, placement of intervertebral biomechanical device and anterior cervical plating C4-C5 and C5-C6 along with local morselized autograft, morselized allograft. HOSPITAL COURSE: The patient is a 59-year-old male, who was admitted to the hospital with acute onset of weakness in both hands. He has a history of diabetes mellitus type 2, hypertension, CVA. He developed sudden onset of weakness in both arms. He was not able to make a fist or hold any objects. The weakness gradually got worse in a few hours, so he presented to the emergency room for further evaluation. He denied any headaches, vision changes, nausea, vomiting, abdominal pain, fever, or chills. No speech changes, confusion, or difficulty swallowing. No weakness in his legs. No neck pain. He denied any recent falls, any injury. He did not have any pain in his arms. There was no incontinence of bowel or bladder. No chest pain. No shortness of breath, cough, wheezing, burning or pain on urination. CT angiogram of the chest was done and did not show any dissection. CT of the head was done in the emergency room and it did not show any acute intracranial abnormalities. His chest x-ray did not show any abnormalities and also he underwent CT angiogram of the [place]. This was done with contrast obviously and it showed no intracranial hemorrhage, although CT angiogram of the neck demonstrated no significant stenosis involving any arterial structures of the neck. There was no any intracranial arterial thrombosis or high-grade stenosis. The patient got admitted to the hospital and his labs were unremarkable . His EKG showed normal sinus rhythm. Neuro was consulted and the patient was started on high dose of IV steroids for cervical cord compression and bilateral upper extremity weakness, which showed on MRI of the cervical spine. Subsequently, he was seen by neurosurgical team and he was taken to the operating room and had anterior cervical diskectomy done with intervertebral arthrodesis and placement of intervertebral biomechanical device and anterior cervical planting C4-C5 and C5-C6 with postoperative diagnosis of cervical intervertebral disk disease with cord compression and central cord injury at C4-C5 and C5-C6. He did very well postop. He did not require much of pain medications. He was seen and released by neurosurgical team this morning. He is going to stay on diabetic diet. Activities as per neurosurgical team. MEDICATIONS: At the time of discharge: 1. Prednisone 20 mg twice a day x1 day, then half a tablet which is 10 mg twice a day for 2 days, then half a tablet once a day for 2 days. His other medications are: 1. Metformin 1000 mg twice a day. 2. Spironolactone 50 mg twice a day. 3. Carvedilol 25 mg twice a day. 4. Lisinopril/hydrochlorothiazide 20/25 mg one tablet once a day. 5. Amlodipine 5 mg once a day. 6. Atorvastatin 20 mg at bedtime. 7. Aspirin 325 mg once a day. 8. Tylenol 650 mg p.o. q.4 hours p.r.n. as needed. FOLLOWUP: He is going to follow up with his [facility] VI[facility] and he will be set up for outpatient rehabilitation process. Job ID: [id number]
== END 2019-07-05 13:15 | disposition home or self-care (01) | DRG 472 ==
LOC: ERS 15:27 → 2SE 17:52 → OBSVTOIN 17:52 → INTOOBSV 17:52
PROVIDERS: ADMIT Internal Medicine; ATTEND Internal Medicine
PROC: 0RG20A0 Fusion of 2 or more Cervical Vertebral Joints with Interbody Fusion Device, Anterior Approach, Anterior Column, Open Approach (ICD-10-PCS; principal; 2019-07-02)
PROC: 0RT30ZZ Resection of Cervical Vertebral Disc, Open Approach (ICD-10-PCS; 2019-07-02)
PROC: 00NW0ZZ Release Cervical Spinal Cord, Open Approach (ICD-10-PCS; 2019-07-02)
DX: M48.02 Spinal stenosis, cervical region (principal); M50.021 Cervical disc disorder at C4-C5 level with myelopathy; E66.9 Obesity, unspecified; E11.9 Type 2 diabetes mellitus without complications; I10 Essential (primary) hypertension; E78.5 Hyperlipidemia, unspecified; F17.290 Nicotine dependence, other tobacco product, uncomplicated; Z86.73 Personal history of transient ischemic attack (TIA), and cerebral infarction without residual deficits; Z68.35 Body mass index [BMI] 35.0-35.9, adult; Z79.82 Long term (current) use of aspirin; Z79.84 Long term (current) use of oral hypoglycemic drugs; Z79.899 Other long term (current) drug therapy; Z88.0 Allergy status to penicillin
CPT/HCPCS: 36415; 36416; 70450; 70496; 70498; 70551; 71045; 71275; 72050; 72141; 72191; 74175; 76000; 80053; 80061; 80306; 80307; 81003; 82140; 82550; 83036; 83690; 83880; 84443; 84484; 85025; 85379; 85610; 85652; 85730; 86140; 93005; 93306; 96360; 96361; C1713; C1776; J0690; J1100; J1644; J1815; J2001; J2250; J2370; J2405; J2704; J3010; J3490; J8540; Q9967